=== PATIENT | male | born 2005 | race Hispanic/Latino ===

== ENCOUNTER 2023-05-09 05:04 | Emergency (ER) | payer SELFPAY ==
[2023-05-09] VITALS (10 sets, daily range): BP systolic 100–124; BP diastolic 50–93; PULSE 69–97; RESP 15–19; TEMP 36.8–36.9; O2SAT 94–100
[2023-05-09 05:59] LABS: Influenza A QL RT-PCR Negative (Negative); Influenza B QL RT-PCR Negative (Negative); RSV RNA, RT-PCR Negative (Negative); SARS-CoV-2 RNA PCR Negative (Negative)
--- NOTE | 2023-05-09 07:30 | ED.URI ---
HPI - URI/Sore Throat General Chief Complaint: Upper Respiratory Infection Stated Complaint: cough Time Seen by Provider: 05/09/23 07:02 History of Present Illness HPI Narrative: This is a 18-year-old male, with no significant past medical history, presenting to the emergency department complaining of 4 days of upper respiratory congestion, cough and vomiting. The patient states his vomiting is primarily triggered by coughing. He denies fevers or chills. He states he recently returned home from [place] Review of Systems Review of Systems: CONSTITUTIONAL: Denies fever, chills, or sweats. ENT: Rhinorrhea, congestion denies sore throat, or otalgia. CARDIOVASCULAR: Denies chest pain, palpitations, or edema. RESPIRATORY: Cough productive of clear sputum denies dyspnea. GASTROINTESTINAL: Intermittent vomiting denies abdominal pain, nausea, or diarrhea. GENITOURINARY: Denies dysuria or hematuria. SKIN: Denies rash or itching. MUSCULOSKELETAL: Denies back pain, joint pain, or myalgia. NEUROLOGIC: Denies headache, numbness, dizziness, or weakness. PSYCHIATRIC: Denies anxiety or depression. PMFSH Past Medical History Medical History (Updated 05/09/23 @ 07:35 by Leonel Mcleod MD) No significant past medical history Surgical History Surgical History (Updated 05/09/23 @ 07:35 by Leonel Mcleod MD) No significant past surgical history Social History Social History (Updated 05/09/23 @ 07:36 by Leonel Mcleod MD) Smoking status: Never smoker Alcohol intake: never Substance use: never Exam Narrative: GENERAL: Well-developed, well-nourished, and in no acute distress. HEAD: Normocephalic, atraumatic. EYES: PERRLA and EOMI. ENT: Clear rhinorrhea, nares clear, no epistaxis. Mucous membranes moist. Oropharynx without tonsillar hypertrophy exudate or other lesions. CHEST: Clear to auscultation. No respiratory distress. No wheezes rales or rhonchi HEART: Regular rate and rhythm. No murmur heard. Normal peripheral pulses. ABDOMEN: Soft, nontender, nondistended, normal active bowel sounds. EXTREMITIES: Normal range of motion. No edema. SKIN: Warm, dry, no rash. NEURO: Alert and oriented x3. Moving all 4 limbs purposefully. PSYCH: Normal mood and affect. Course Course Emergency Course: 07:30 - Patient tested negative for influenza, RSV and COVID. I suspect other viral illness. I discussed possible imaging versus conservative management. The patient elects the latter. We will treat with NSAIDs, decongestants and Zofran for nausea. Discussed return and emergency precautions including signs/symptoms of respiratory distress and ACS. The patient voiced understanding and is comfortable with the plan. All questions answered to his satisfaction. Vital Signs Vital signs: Vital Signs Temperature 98.2 F 05/09/23 05:04 Pulse Rate 97 05/09/23 05:04 Respiratory Rate 18 05/09/23 05:04 Blood Pressure 124/56 L 05/09/23 05:04 Pulse Oximetry 98 05/09/23 05:04 Oxygen Delivery Room Air 05/09/23 05:04 Temperature 98.4 F 05/09/23 05:32 Pulse Rate 88 05/09/23 07:31 Respiratory Rate 19 05/09/23 07:31 Blood Pressure 110/93 H 05/09/23 07:31 Pulse Oximetry 94 05/09/23 07:31 Oxygen Delivery Room Air 05/09/23 05:31 MDM - URI/Sore Throat MDM Narrative Medical decision making narrative: Plan: Labs, pain control, reassess Differential Diagnosis Differential diagnosis: Likely upper respiratory infection, viral infection, influenza and other (COVID, other) Lab Data Labs: Lab Results 05/09/23 Range/Units 05:20 Influenza A (RT-PCR) Negative (Negative) Influenza B (RT-PCR) Negative (Negative) RSV (RT-PCR) Negative (Negative) SARS-CoV-2 RNA (RT-PCR) Negative (Negative) Discharge Plan Discharge Clinical Impression: Upper respiratory infection Qualifiers: URI type: unspecified viral URI Qualified Code(s): J06.9 - Acute upper respiratory i
== END 2023-05-09 07:46 | disposition home or self-care (01) ==
PROVIDERS: Emergency Medicine; Emergency Provider Preventive Medicine Aerospace Medicine
DX: J06.9 Acute upper respiratory infection, unspecified (principal); Z20.822 Contact with and (suspected) exposure to COVID-19
CPT/HCPCS: 87637; 99283